=== PATIENT | male | born 1985 | race African-American/Black ===

== ENCOUNTER 2019-09-16 13:46 | Emergency (ER) | payer MEDICAID ==
[~2019-09-16] VITALS: Ht 185.4 cm; Wt 167.8 kg
[~2019-09-16 13:46] MED LIST: BACTRIM DS TAB1 EAC1 ORAL; CYCLOBENZAPRINE10 MG ORAL; HYDROXYZINE HCL25 M1 PO; IBUPROFEN600 MG ORAL; IBUPROFEN800 MG ORAL; KEFLEX500 MG ORAL; NKM; NORCO 5-325 TA1 EACH ORAL; PENICILLIN V P500 MG ORAL; PENICILLIN V P500 MG PO; PREDNISONE20 MG ORAL; PREDNISONE50 MG ORAL
[2019-09-16 13:55] VITALS: BP 140/99
--- NOTE | 2019-09-16 15:01 | Emergency Room Report ---
History of Present Illness General Chief Complaint: Upper Extremity Injury Source: Patient Present Illness HPI 34-year-old male presents to the emergency department complaining of 3 out of 10 in severity tenderness to the palmar aspect of the left index finger x2 weeks. Patient has been self treating at home using salicylic acid that he bought [id number] for a wart on his finger. Patient reports skin discoloration. He reports his skin is turning white. He denies erythema or warmth. He states he is using it several times a day. He denies swelling, fevers or chills. He denies joint pain or difficulty using the affected finger. No other aggravating or relieving factors at this time. COVID-19 risk:Contact w/high r: No COVID-19 risk:Travel to affect: No Has patient experienced go: No Allergies: Coded Allergies: No Known Allergies (Unverified , 11/15/14) Patient History Past Medical History: see triage record Past Surgical History: none Pertinent Family History: none Immunizations: UTD Reviewed Nursing Documentation: PMH: Agreed; PSxH: Agreed Nursing Documentation-PMH Hx Hypertension: Yes Hx Asthma: Yes Review of Systems All Other Systems: negative except mentioned in HPI Physical Exam Vital Signs Date Time Temp Pulse Resp B/P (MAP) Pulse Ox O2 Delivery O2 Flow Rate FiO2 09/16/19 13:52 98.2 93 17 145/99 (114) 98 Room Air Sp02 EP Interpretation: reviewed, normal General Appearance: no apparent distress, alert, GCS 15, non-toxic Head: normocephalic, atraumatic Eyes: bilateral eye normal inspection, bilateral eye PERRL ENT: hearing grossly normal, normal voice Neck: full range of motion Respiratory: lungs clear, normal breath sounds, speaking full sentences Cardiovascular #1: regular rate, rhythm, normal capillary refill Musculoskeletal: normal range of motion, gait/station normal, non-tender Neurologic: alert, motor strength/tone normal, oriented x3, sensory intact, responsive, speech normal Psychiatric: judgement/insight normal Skin: other - 0.7cm macerate wart on the palmar aspect of the left index finger , white appearance, not ulcerated. No blisters or vesicles. Lymphatic: no adenopathy Medical Decision Making PA Attestation Dr. Meléndez is my supervising Physician whom patient management has been discussed with. Diagnostic Impression: Primary Impression: Viral wart on finger ER Course 34-year-old male presents to the emergency department complaining of 3 out of 10 in severity tenderness to the palmar aspect of the left index finger x2 weeks. Patient has been self treating at home using salicylic acid that he bought [id number] for a wart on his finger. Patient reports skin discoloration. He reports his skin is turning white. He denies erythema or warmth. He states he is using it several times a day. He denies swelling, fevers or chills. He denies joint pain or difficulty using the affected finger. No other aggravating or relieving factors at this time. Ddx considered but are not limited to cellulitis, Necrotizing fasciitis, allergic reaction, burn, dermatitis, fracture, d/L, gout, paronychia, eponychia, ingrown toe nail, Vital signs: are WNL, pt. is afebrile H&PE are most consistent with wart being excessively treated with salicylic acid, macerated appearance, no erythema, swelling or warmth. ORDERS: none required at this time, the diagnosis is clinical ED INTERVENTIONS: None required at this time. d/w pt. to d/c salicylic acid or reduce to 1x per week. D/w pt. 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 DISCHARGE: At this time pt. is stable for d/c to home. Will provide printed patient care instructions, and any necessary prescriptions. Care plan and follow up instructions have been discussed with the patient prior to discharge. Last Vital Signs Date Time Temp Pulse Resp B/P (MAP) Pulse Ox O2 Delivery O2 Flow Rate FiO2 09/16/19 13:55 98.2 84 17 140/99 98 Room Air Disposition: HOME, SELF-CARE Condition: Stable Patient Instructions: Warts, [id number] Additional Instructions: Take medications as directed. DISCONTINUE EXCESSIVE DAILY USE OF SALICYLIC ACID. Follow up with a Primary Care Provider in 3-5 days for DERMATOLOGY REFERRAL , even if your symptoms have resolved. Return sooner to ED if new symptoms occur, or current symptoms become worse. - Please note that this Emergency Department Report was dictated using [employer] handler technology software, occasionally this can lead to erroneous entry secondary to interpretation by the dictation equipment. Shobha Barrett Sep 16, 2019 15:01
[2019-09-16] MEDS ORDERED: BACITRACIN15 GM TOPIC (15:03)
[2019-09-16 15:09] VITALS: BP 132/94
== END 2019-09-16 15:09 | disposition home or self-care (01) ==
LOC: EMR 14:15
DX: B07.9 Viral wart, unspecified (principal); I10 Essential (primary) hypertension; J45.909 Unspecified asthma, uncomplicated
CPT/HCPCS: 99281